=== PATIENT | female | born 1995 | race Caucasian/White ===

== ENCOUNTER 2018-07-30 16:33 | Emergency (ER) | payer BC, SELFPAY ==
[2018-07-30] MEDS ORDERED: LORazepam 2 MG/ML VIAL ONE (17:13)
--- NOTE | 2018-07-30 17:44 | ER ---
Nurse's Notes [facility] Name: Layla Gagnon Age: 23 yrs Sex: Female : 1995 Arrival Date: 07/30/2018 Time: 16:39 Bed 25 Private MD: Diagnosis: Panic disorder [episodic paroxysmal anxiety] without agoraphobia Presentation: 07/30 16:39 Presenting complaint: EMS states: pt got into a verbal argument with BF. Pt has hx of ca1 anxiety. Started to breath hast at >40 breaths per minute. VS stable. Pulse at sinus tach. Pt has no HX of Diabetes. Transition of care: patient was not received from another setting of care. Onset of symptoms was July 30, 2018. Risk Assessment: Do you want to hurt yourself or someone else? Patient reports no desire to harm self or others. Initial Sepsis Screen: Does the patient meet any 2 criteria? RR > 20 per min. Does the patient have a suspected source of infection? No. Patient's initial sepsis screen is negative. Care prior to arrival: Medication(s) given: Versed 2.5mg IV IV initiated. 20 GA, in the left antecubital area, Glucose check: 66. 16:39 Method Of Arrival: EMS ca1 16:39 Acuity: KEENAN 3 ca1 Triage Assessment: 16:46 General: Appears in no apparent distress. uncomfortable, Behavior is anxious, crying. ca1 Pain: Complains of pain in back, right hand and left hand Pain does not radiate. Pain currently is 7 out of 10 on a pain scale. Pain began 30 min ago. EENT: No deficits noted. No signs and/or symptoms were reported regarding the EENT system. Neuro: Level of Consciousness is awake, alert, obeys commands, Oriented to person, place, time, situation. Cardiovascular: Heart tones S1 S2 present Capillary refill < 3 seconds Patient's skin is warm and dry. Respiratory: Airway is patent Respiratory effort is even, unlabored, Respiratory pattern is regular, symmetrical, Breath sounds are clear bilaterally. GI: Abdomen is flat, non-distended, Bowel sounds present X 4 quads. Abd is soft and non tender X 4 quads. : No deficits noted. No signs and/or symptoms were reported regarding the genitourinary system. Derm: Skin is intact, is healthy with good turgor, Skin is pink, warm \T\ dry. Musculoskeletal: Circulation, motion, and sensation intact. Capillary refill < 3 seconds, stiffness on fingers of both hands. 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 - Social history:: Smoking status: Patient/guardian denies using tobacco. - Ebola Screening: : No symptoms or risks identified at this time. Screenin:50 Abuse screen: Denies threats or abuse. Denies injuries from another. Nutritional ca1 screening: No deficits noted. Tuberculosis screening: No symptoms or risk factors identified. Fall Risk None identified. Assessment: 16:50 Reassessment: SEE TRIAGE ASSESSMENT. ca1 17:35 Reassessment: Patient appears in no apparent distress at this time. Patient and/or ca1 family updated on plan of care and expected duration. Pain level reassessed. Patient is alert, oriented x 3, equal unlabored respirations, skin warm/dry/pink. Pt requested to see BF. BF at bedside with pt's mother. 17:49 Reassessment: Patient appears in no apparent distress at this time. Patient is alert, ca1 oriented x 3, equal unlabored respirations, skin warm/dry/pink. Patient states feeling better. Vital Signs: 16:46 BP 112 / 85; Pulse 84; Resp 42 S; Temp 97.6; Pulse Ox 100% on R/A; Weight 52.62 kg; ca1 Height 5 ft. 4 in. (162.56 cm); Pain 7/10; 17:34 BP 129 / 81; Pulse 96; Resp 19 S; Pulse Ox 100% on R/A; ca1 16:46 Body Mass Index 19.91 (52.62 kg, 162.56 cm) ca1 ED Course: 16:39 Patient arrived in ED. ca1 16:39 Aubrey Mcqueen PA is PHCP. jr8 16:39 Pati Saab MD is Attending Physician. jr8 16:44 Triage completed. ca1 16:46 Arm band placed on left wrist. ca1 16:50 Patient has correct armband on for positive identification. Bed in low position. Call ca1 light in reach. Side rails up X 1. Pulse ox on. NIBP on. Door closed. Warm blanket given. Family accompanied patient. 16:50 Maintain EMS IV. Dressing intact. Good blood return noted. Site clean \T\ dry. Gauge \T\ ca 1 site: G20 at LAC. 16:52 Lulu Landaverde, RN is Primary Nurse. ca1 17:50 No provider procedures requiring assistance completed. IV discontinued, intact, ca1 bleeding controlled, No redness/swelling at site. Pressure dressing applied. Administered Medications: 17:00 Drug: Ativan 2 mg Route: IVP; Site: left antecubital; ca1 Outcome: 17:43 Discharge ordered by MD. castaneda 17:50 Discharged to home ambulatory, with family. ca1 17:50 Condition: stable 17:50 Discharge instructions given to patient, Instructed on discharge instructions, follow up and referral plans. Demonstrated understanding of instructions, follow-up care. 17:50 Patient left the ED. ca1 Signatures: Aubrey Mcqueen PA PA jr8 Acob, Cheryl, RN RN ca1 Corrections: (The following items were deleted from the chart) 17:50 17:34 BP 129 / 81; Pulse 96bpm; Resp 26bpm; Spontaneous; Pulse Ox 100% RA; ca1 ca1
--- NOTE | 2018-07-30 17:44 | EDPHYS ---
Physician Documentation [facility] Name: Layla Gagnon Age: 23 yrs Sex: Female : 1995 Arrival Date: 07/30/2018 Time: 16:39 Bed 25 Private MD: ED Physician Pati Saab HPI: 07/30 17:16 This 23 yrs old Female presents to ER via EMS with complaints of jr8 Anxiety/Panic Attack . 17:16 The patient presents to the emergency department with anxiety, over a relationship, jr8 dispute. Onset: The symptoms/episode began/occurred acutely, today. Past psychiatric history: Prior diagnosis: anxiety, Psychiatric medications include: Effexor . Associated signs and symptoms: The patient has no apparent associated signs or symptoms. Severity of symptoms: At their worst the symptoms were moderate in the emergency department the symptoms are unchanged. The patient has experienced similar episodes in the past, a few times. The patient has not recently seen a physician. 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 - Social history:: Smoking status: Patient/guardian denies using tobacco. - Ebola Screening: : No symptoms or risks identified at this time. ROS: 17:16 Eyes: Negative for injury, pain, redness, and discharge, ENT: Negative for injury, jr8 pain, and discharge, Neck: Negative for injury, pain, and swelling, Cardiovascular: Negative for chest pain, palpitations, and edema, Respiratory: Negative for shortness of breath, cough, wheezing, and pleuritic chest pain, Abdomen/GI: Negative for abdominal pain, nausea, vomiting, diarrhea, and constipation, Back: Negative for injury and pain, MS/Extremity: Negative for injury and deformity, Skin: Negative for injury, rash, and discoloration, Neuro: Negative for headache, weakness, numbness, tingling, and seizure. 17:16 Psych: Positive for anxiety. Exam: 17:16 Eyes: Pupils equal round and reactive to light, extra-ocular motions intact. Lids and jr8 lashes normal. Conjunctiva and sclera are non-icteric and not injected. Cornea within normal limits. Periorbital areas with no swelling, redness, or edema. ENT: Nares patent. No nasal discharge, no septal abnormalities noted. Tympanic membranes are normal and external auditory canals are clear. Oropharynx with no redness, swelling, or masses, exudates, or evidence of obstruction, uvula midline. Mucous membranes moist. Neck: Trachea midline, no thyromegaly or masses palpated, and no cervical lymphadenopathy. Supple, full range of motion without nuchal rigidity, or vertebral point tenderness. No Meningismus. Cardiovascular: Regular rate and rhythm with a normal S1 and S2. No gallops, murmurs, or rubs. Normal PMI, no JVD. No pulse deficits. Respiratory: Lungs have equal breath sounds bilaterally, clear to auscultation and percussion. No rales, rhonchi or wheezes noted. No increased work of breathing, no retractions or nasal flaring. Abdomen/GI: Soft, non-tender, with normal bowel sounds. No distension or tympany. No guarding or rebound. No evidence of tenderness throughout. Back: No spinal tenderness. No costovertebral tenderness. Full range of motion. Skin: Warm, dry with normal turgor. Normal color with no rashes, no lesions, and no evidence of cellulitis. MS/ Extremity: Pulses equal, no cyanosis. Neurovascular intact. Full, normal range of motion. Neuro: Awake and alert, GCS 15, oriented to person, place, time, and situation. Cranial nerves II-XII grossly intact. Motor strength 5/5 in all extremities. Sensory grossly intact. Cerebellar exam normal. Normal gait. 17:16 Psych: Behavior/mood is anxious, Affect is animated, Oriented to person, place, time, Patient has no thoughts/intents to harm self or others. Judgement / Insight is normal. Memory is normal. Delusions/hallucinations are not present. Vital Signs: 16:46 BP 112 / 85; Pulse 84; Resp 42 S; Temp 97.6; Pulse Ox 100% on R/A; Weight 52.62 kg; ca1 Height 5 ft. 4 in. (162.56 cm); Pain 7/10; 17:34 BP 129 / 81; Pulse 96; Resp 19 S; Pulse Ox 100% on R/A; ca1 16:46 Body Mass Index 19.91 (52.62 kg, 162.56 cm) ca1 MDM: 16:39 Patient medically screened. jr8 17:16 Data reviewed: vital signs, nurses notes, and as a result, I will discharge patient. jr8 Data interpreted: Pulse oximetry: on room air is 100 %. Interpretation: normal. Counseling: I had a detailed discussion with the patient and/or guardian regarding: the historical points, exam findings, and any diagnostic results supporting the discharge/admit diagnosis, the need for outpatient follow up, a family practitioner, to return to the emergency department if symptoms worsen or persist or if there are any questions or concerns that arise at home. Response to treatment: the patient's symptoms have resolved after treatment. Administered Medications: 17:00 Drug: Ativan 2 mg Route: IVP; Site: left antecubital; ca1 Disposition: 18:39 Co-signature as Attending Physician, Pati Saab MD. ar2 Disposition: 07/30/18 17:43 Discharged to Home. Impression: Panic disorder [episodic paroxysmal anxiety] without agoraphobia. - Condition is Stable. - Discharge Instructions: Panic Attacks. - Medication Reconciliation Form, Thank You Letter, Antibiotic Education, Prescription Opioid Use form. - Follow up: Private Physician; When: 2 - 3 days; Reason: Recheck today's complaints, Continuance of care, Re-evaluation by your physician. - Problem is new. - Symptoms have improved. Signatures: Aubrey Mcqueen PA PA jr8 Pati Saab MD MD ar2 Lulu Landaverde RN RN ca1 Corrections: (The following items were deleted from the chart) 17:50 17:43 07/30/2018 17:43 Discharged to Home. Impression: Panic disorder [episodic ca1 paroxysmal anxiety] without agoraphobia. Condition is Stable. Forms are Medication Reconciliation Form, Thank You Letter, Antibiotic Education, Prescription Opioid Use. Follow up: Private Physician; When: 2 - 3 days; Reason: Recheck today's complaints, Continuance of care, Re-evaluation by your physician. Problem is new. Symptoms have improved. jr8
[2018-07-30 18:11] VITALS: TEMP 97.6; O2SAT 100
[2018-07-30 18:12] VITALS: BP 129/81
== END 2018-07-30 17:50 | disposition home or self-care (01) ==
LOC: ER 16:33
DX: F41.0 Panic disorder [episodic paroxysmal anxiety] (principal)
CPT/HCPCS: 96374; 99283

== ENCOUNTER 2020-03-19 09:51 | Emergency (ER) | payer SELFPAY ==
--- NOTE | 2020-03-19 10:03 | EDPHYS ---
Physician Documentation [facility] Name: Layla Gagnon Age: 24 yrs Sex: Female : 1995 Arrival Date: 03/19/2020 Time: 09:54 Bed 13 Private MD: ED Physician Burt English HPI: 03/19 10:01 This 24 yrs old Female presents to ER via Ambulatory with complaints of Ear kb Pain, Vomiting. 10:01 The patient presents with pain. The complaints affect the left ear. Onset: The kb symptoms/episode began/occurred this morning. Modifying factors: The symptoms are alleviated by nothing, the symptoms are aggravated by nothing. Associated signs and symptoms: The patient has no apparent associated signs or symptoms. Severity of symptoms: At their worst the symptoms were moderate severe in the emergency department the symptoms are unchanged. The patient has not experienced similar symptoms in the past. The patient has not recently seen a physician. Pt reports left ear pain that started at 0300. States she has had nausea and vomiting secondary to pain. . 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 - Social history:: Smoking status: Patient denies any tobacco usage or history of. ROS: 10:00 Constitutional: Negative for fever, chills, and weight loss, Cardiovascular: Negative kb for chest pain, palpitations, and edema, Respiratory: Negative for shortness of breath, cough, wheezing, and pleuritic chest pain, MS/Extremity: Negative for injury and deformity, Skin: Negative for injury, rash, and discoloration, Neuro: Negative for headache, weakness, numbness, tingling, and seizure. 10:00 ENT: Positive for ear pain. 10:01 Abdomen/GI: Positive for nausea and vomiting, Negative for abdominal pain, diarrhea, kb constipation. Exam: 09:59 Constitutional: This is a well developed, well nourished patient who is awake, alert, kb and in no acute distress. Head/Face: Normocephalic, atraumatic. Chest/axilla: Normal chest wall appearance and motion. Nontender with no deformity. No lesions are appreciated. Cardiovascular: Regular rate and rhythm with a normal S1 and S2. No gallops, murmurs, or rubs. Normal PMI, no JVD. No pulse deficits. Respiratory: Lungs have equal breath sounds bilaterally, clear to auscultation and percussion. No rales, rhonchi or wheezes noted. No increased work of breathing, no retractions or nasal flaring. Abdomen/GI: Soft, non-tender, with normal bowel sounds. No distension or tympany. No guarding or rebound. No evidence of tenderness throughout. Skin: Warm, dry with normal turgor. Normal color with no rashes, no lesions, and no evidence of cellulitis. MS/ Extremity: Pulses equal, no cyanosis. Neurovascular intact. Full, normal range of motion. Neuro: Awake and alert, GCS 15, oriented to person, place, time, and situation. Cranial nerves II-XII grossly intact. Motor strength 5/5 in all extremities. Sensory grossly intact. Cerebellar exam normal. Normal gait. 09:59 ENT: External ear(s): are unremarkable, Ear canal(s): are normal, TM's: bulging, on the left, erythema, that is moderate, on the left, Examination of the other ear shows no obvious abnormality. Vital Signs: 09:59 Pulse 76; Resp 16; Temp 98.2; Pulse Ox 100% ; Weight 52.16 kg; Height 5 ft. 4 in. sv (162.56 cm); 10:00 BP 118 / 70; Pulse 72; Resp 16; Pulse Ox 100% on R/A; vg1 09:59 Body Mass Index 19.74 (52.16 kg, 162.56 cm) sv MDM: 09:55 Patient medically screened. kb 09:59 Data reviewed: vital signs, nurses notes. Data interpreted: Pulse oximetry: on room air kb is 100 %. Interpretation: normal. Counseling: I had a detailed discussion with the patient and/or guardian regarding: the historical points, exam findings, and any diagnostic results supporting the discharge/admit diagnosis, the need for outpatient follow up, a family practitioner, to return to the emergency department if symptoms worsen or persist or if there are any questions or concerns that arise at home. Administered Medications: 10:11 Drug: Zofran (Ondansetron) 4 mg Route: PO; vg1 10:16 Follow up: Response: Medication administered at discharge. vg1 10:11 Drug: Ibuprofen 600 mg Route: PO; vg1 10:16 Follow up: Response: Medication administered at discharge. vg1 10:11 Drug: Augmentin 875 mg Route: PO; vg1 10:16 Follow up: Response: Medication administered at discharge. vg1 Disposition: 10:17 Co-signature as Attending Physician, Burt English MD. rn Disposition: 03/19/20 10:02 Discharged to Home. Impression: Otitis media, unspecified, left ear. - Condition is Stable. - Discharge Instructions: Otitis Media, Adult, [id number]. - Prescriptions for Amoxicillin 875 mg Oral Tablet - take 1 tablet by ORAL route every 12 hours for 10 days; 20 tablet. - Medication Reconciliation Form, Thank You Letter, Antibiotic Education, Prescription Opioid Use, Work release form form. - Follow up: Emergency Department; When: As needed; Reason: Worsening of condition. Follow up: Private Physician; When: 2 - 3 days; Reason: Recheck today's complaints, Continuance of care, Re-evaluation by your physician. Signatures: Fannie Hickman, GLASS RIBBON MACHINE OPERATOR ASSISTANT-C GLASS RIBBON MACHINE OPERATOR ASSISTANT-Shabnam Waterman, RN Burt Johnson MD MD rn Garcia, Victoria, RN RN vg1 Corrections: (The following items were deleted from the chart) 10:01 10:00 Constitutional: Negative for fever, chills, and weight loss, Cardiovascular: kb Negative for chest pain, palpitations, and edema, Respiratory: Negative for shortness of breath, cough, wheezing, and pleuritic chest pain, Abdomen/GI: Negative for abdominal pain, nausea, vomiting, diarrhea, and constipation, MS/Extremity: Negative for injury and deformity, Skin: Negative for injury, rash, and discoloration, Neuro: Negative for headache, weakness, numbness, tingling, and seizure, kb 10:16 10:02 03/19/2020 10:02 Discharged to Home. Impression: Otitis media, unspecified, left vg1 ear. Condition is Stable. Forms are Medication Reconciliation Form, Thank You Letter, Antibiotic Education, Prescription Opioid Use. Follow up: Emergency Department; When: As needed; Reason: Worsening of condition. Follow up: Private Physician; When: 2 - 3 days; Reason: Recheck today's complaints, Continuance of care, Re-evaluation by your physician. kb
--- NOTE | 2020-03-19 10:03 | ER ---
Nurse's Notes [facility] Name: Layla Gagnon Age: 24 yrs Sex: Female : 1995 Arrival Date: 03/19/2020 Time: 09:54 Bed 13 Private MD: Diagnosis: Otitis media, unspecified, left ear Presentation: 03/19 09:59 Chief complaint: Patient states: left ear pain and vomiting d/t pain since 0300 today. sv Coronavirus screen: Client denies travel out of the [place] in the last 14 days. At this time, the client does not indicate any symptoms associated with coronavirus-19. Ebola Screen: No symptoms or risks identified at this time. Initial Sepsis Screen: Does the patient meet any 2 criteria? No. Patient's initial sepsis screen is negative. Does the patient have a suspected source of infection? No. Patient's initial sepsis screen is negative. Risk Assessment: Do you want to hurt yourself or someone else? Patient reports no desire to harm self or others. Onset of symptoms was March 19, 2020. 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 - Social history:: Smoking status: Patient denies any tobacco usage or history of. Screenin:00 Abuse screen: Denies threats or abuse. Nutritional screening: No deficits noted. vg1 Tuberculosis screening: No symptoms or risk factors identified. Fall Risk None identified. Assessment: 09:55 General: Appears in no apparent distress. Behavior is calm, cooperative. Pain: vg1 Complains of pain in left ear Pain currently is 10 out of 10 on a pain scale. Pain began this morning around 0400 Aggravated by touch. Neuro: Level of Consciousness is awake, alert, obeys commands, Oriented to person, place, time. Cardiovascular: Patient's skin is warm and dry. 09:55 Respiratory: Airway is patent Respiratory effort is even, unlabored, Respiratory vg1 pattern is regular, symmetrical. GI: Reports diarrhea, nausea, vomiting, since this morning. : EENT: Reports no irritation or soreness to throat.. Derm: Skin is pink, warm \T\ dry. Musculoskeletal: Range of motion: intact in all extremities. Vital Signs: 09:59 Pulse 76; Resp 16; Temp 98.2; Pulse Ox 100% ; Weight 52.16 kg; Height 5 ft. 4 in. sv (162.56 cm); 10:00 BP 118 / 70; Pulse 72; Resp 16; Pulse Ox 100% on R/A; vg1 09:59 Body Mass Index 19.74 (52.16 kg, 162.56 cm) ED Course: 09:54 Patient arrived in ED. rg4 09:54 Fannie [facility]ickman [facility]C [facility] kb 09:54 Burt Englihs MD is Attending Physician. kb 09:55 Vianca Orourke, SHELDON is Primary Nurse. vg1 10:00 Patient has correct armband on for positive identification. Bed in low position. Call vg1 light in reach. 10:01 Triage completed. sv 10:01 Arm band placed on Patient placed in an exam room, on a stretcher. sv 10:13 No provider procedures requiring assistance completed. Patient did not have IV access vg1 during this emergency room visit. Administered Medications: 10:11 Drug: Zofran (Ondansetron) 4 mg Route: PO; vg1 10:16 Follow up: Response: Medication administered at discharge. vg1 10:11 Drug: Ibuprofen 600 mg Route: PO; vg1 10:16 Follow up: Response: Medication administered at discharge. vg1 10:11 Drug: Augmentin 875 mg Route: PO; vg1 10:16 Follow up: Response: Medication administered at discharge. vg1 Outcome: 10:02 Discharge ordered by . kb 10:15 Discharged to home ambulatory. vg1 10:15 Condition: good 10:15 Discharge instructions given to patient, Instructed on discharge instructions, follow up and referral plans. medication usage, Demonstrated understanding of instructions, follow-up care, medications. 10:16 Patient left the ED. vg1 Signatures: Fannie Hickman FNP-C FNP-Ckb Verde, Stephanie, RN RN sv Garcia, Rubi rg4 Vianca Orourke RN RN vg1 Corrections: (The following items were deleted from the chart) 10:18 09:55 GI: Reports diarrhea, since this morning vg1 vg1
[2020-03-19] MEDS ORDERED: IBUPROFEN 400 MG TAB ONE (10:21)
[2020-03-19] MEDS ORDERED: AMOX/K CLAV 875 MG TAB ONE (10:21)
[2020-03-19] MEDS ORDERED: IBUPROFEN 200 MG TAB PO ONE (10:21)
[2020-03-19] MEDS ORDERED: ONDANSETRON 4 MG (ODT) TAB ONE (10:22)
[2020-03-21 22:40] VITALS: TEMP 98.2; O2SAT 100
== END 2020-03-19 10:16 | disposition home or self-care (01) ==
LOC: ER 09:51
DX: H66.92 Otitis media, unspecified, left ear (principal); R11.2 Nausea with vomiting, unspecified
CPT/HCPCS: 99283